=== PATIENT | female | born 1980 | race Caucasian/White ===

== ENCOUNTER 2025-07-20 06:21 | Day surgery (SDC) | payer BC ==
[2025-07-20] MEDS ORDERED: LIDOCAINE-MPF 2% 5 ML VIAL ONE (08:00)
[2025-07-20] MEDS ORDERED: PROPOFOL 200 MG/20 ML BOTTLE ONE (08:00)
[2025-07-20 08:21] LABS: *URINE HCG, QUAL NEGATIVE (NEGATIVE)
[2025-07-20 09:27] VITALS: BP 110/63; TEMP 97.5
== END 2025-07-20 09:27 | disposition home or self-care (01) ==
LOC: DS 06:21
PROVIDERS: ATTEND Internal Medicine Gastroenterology
DX: R10.13 Epigastric pain (principal); K31.84 Gastroparesis; K63.89 Other specified diseases of intestine; F41.9 Anxiety disorder, unspecified; Z87.440 Personal history of urinary (tract) infections; Z79.899 Other long term (current) drug therapy; Z98.890 Other specified postprocedural states
CPT/HCPCS: 43239; 84703; 88305; 88313; 88342; J3490; J7120; A4663